=== PATIENT | male | born 1945 | race Caucasian/White ===

== ENCOUNTER 2023-05-11 10:18 | Emergency (ER) | payer OTHER, MEDICARE ==
[~2023-05-11] VITALS: Ht 177.8 cm; Wt 79.5 kg
[2023-05-11 10:51] VITALS: TEMP 97.5
[2023-05-11] MEDS: TETanus/Pertussis (Acell)/Diphther VAC/PF (Tdap-Adult) 0.5ml syringe IMVAC ONE (11:54)
[2023-05-11] MEDS: LIDOcaine 1% W/epiNEPHrine 1:100,000 20ml vial IJ ONE (12:27)
[2023-05-11 13:33] VITALS: BP 135/58; PULSE 52; RESP 18; O2SAT 98
== END 2023-05-11 13:35 | disposition home or self-care (01) ==
LOC: ER 10:18
DX: S01.91XA Laceration without foreign body of unspecified part of head, initial encounter (principal); Z88.8 Allergy status to other drugs, medicaments and biological substances; W18.31XA Fall on same level due to stepping on an object, initial encounter; Y93.89 Activity, other specified; Y92.096 Garden or yard of other non-institutional residence as the place of occurrence of the external cause; Y99.8 Other external cause status
CPT/HCPCS: 12013; 70450; 90471; 90715; 99285; A6449